=== PATIENT | female | born 1945 | race Caucasian/White ===

== ENCOUNTER → 2017-09-09 | Outpatient (CLI) | payer OTHER | LOC: M WHC 14:13 | DX: Z12.31 Encounter for screening mammogram for malignant neoplasm of breast (principal) | CPT/HCPCS: 77067 ==

== ENCOUNTER 2017-09-22 11:09 | Day surgery (SDC) | payer OTHER ==
[~2017-09-22 11:09] MED LIST: LIDOCAINE 2% MDV 20 ML VIAL As Ordered; PROPOFOL 200 MG/20 ML VIAL As Ordered
[2017-09-22] MEDS: NS 1,000 ML IV (11:15)
== END 2017-09-22 13:50 | disposition home or self-care (01) ==
LOC: M OPP 11:09
DX: Z12.11 Encounter for screening for malignant neoplasm of colon (principal); Z86.010 Personal history of colon polyps; K57.30 Diverticulosis of large intestine without perforation or abscess without bleeding; I10 Essential (primary) hypertension; E78.5 Hyperlipidemia, unspecified; E11.9 Type 2 diabetes mellitus without complications; K21.9 Gastro-esophageal reflux disease without esophagitis; R12 Heartburn; M54.9 Dorsalgia, unspecified; F41.9 Anxiety disorder, unspecified; F32.9 Major depressive disorder, single episode, unspecified; J45.909 Unspecified asthma, uncomplicated; Z88.8 Allergy status to other drugs, medicaments and biological substances; Z91.048 Other nonmedicinal substance allergy status; Z88.1 Allergy status to other antibiotic agents; Z88.0 Allergy status to penicillin; Z79.899 Other long term (current) drug therapy; Z79.84 Long term (current) use of oral hypoglycemic drugs
CPT/HCPCS: G0105

== ENCOUNTER 2018-04-13 17:14 | Emergency (ER) | payer OTHER ==
[2018-04-13] MEDS ORDERED: PERCOCET 5MG/325MG TAB As Ordered (18:07)
[2018-04-13] MEDS: PERCOCET 5MG/325MG TAB PO (18:09)
== END 2018-04-13 19:32 | disposition home or self-care (01) ==
LOC: M ED 17:14
DX: S42.291A Other displaced fracture of upper end of right humerus, initial encounter for closed fracture (principal); S40.211A Abrasion of right shoulder, initial encounter; W01.0XXA Fall on same level from slipping, tripping and stumbling without subsequent striking against object, initial encounter; Y92.098 Other place in other non-institutional residence as the place of occurrence of the external cause; I10 Essential (primary) hypertension; Z88.8 Allergy status to other drugs, medicaments and biological substances; Z88.1 Allergy status to other antibiotic agents; Z88.0 Allergy status to penicillin; Z79.899 Other long term (current) drug therapy; Z79.84 Long term (current) use of oral hypoglycemic drugs
CPT/HCPCS: 73030

== ENCOUNTER → 2018-11-15 | Outpatient (CLI) | payer MEDICARE ==
[~2018-11-15] MED LIST changes: +ALBU0.084 INH; +ALOE VERA; +ASPI81TA3 OR; +AVALIDE OR; +CALCIUM CITRATE OR; +CARI350T; +CELE1CAP4; +FLON0.05 OR; +FLOV110A INH; +FLUT1SPR2; +FOSAMAX OR; +GLUC500T3; +GLUC850T OR; +IBUP600T OR; -LIDOCAINE 2% MDV 20 ML VIAL As Ordered; +LOSA100T PO; +LYSINE; +MECL-68 PO; +METR0.752 EX; +MONT10TA2 PO; +MULTIVIT OR; +NEXI1CAP3; +OXYC5CAP4; +OXYC5CAP4 OR; +PERC5TAB12 PO; +PERC5TAB8; +PIROPOW2; +PROAAER10 IN; -PROPOFOL 200 MG/20 ML VIAL As Ordered; +SIMV20TA2 OR; +SING10TA31 OR; +TOPI100T OR; +VENL75CA47 PO; +ZOFR4TAB14 PO; +ZOLO100T OR
--- NOTE | 2018-11-15 14:49 | REPMRS ---
Patient History The patient states she has not had a clinical breast exam in over a year. Patient is postmenopausal. No known family history of cancer. No Hormone Replacement Therapy 3D TOMOSYNTHESIS WAS PERFORMED. Digital Woman Screen Mammo: November 15, 2018 - Exam #: [id number] Bilateral CC and MLO view(s) were taken. Technologist: Lizette Ontiveros, Technologist Prior study comparison: September 09, 2017, digital woman screen mammo performed at [facility]. FINDINGS: There are scattered fibroglandular densities. There has been no change in the appearance of the mammogram from the prior studies. There is a mild amount of residual fibroglandular tissue which is fairly symmetric. There is no interval development of dominant mass, architectural distortion, or clustered microcalcification suggestive of malignancy. Assessment: BI-RADS/ACR category 1 mammogram. Negative Mammogram. Recommendation Routine screening mammogram in 1 year (for women over age 40). This mammogram was interpreted with the aid of an FDA-approved computer-aided dectection system. Electronically Signed By: Vito Leal MD 11/15/18 [id number]
== END ==
LOC: M WHC 13:04
PROVIDERS: ATTEND Internal Medicine
DX: Z12.31 Encounter for screening mammogram for malignant neoplasm of breast (principal); M85.80 Other specified disorders of bone density and structure, unspecified site; Z78.0 Asymptomatic menopausal state

== ENCOUNTER → 2019-02-07 | Outpatient (CLI) | payer MEDICARE ==
--- NOTE | 2019-02-07 16:15 | REP ---
Right hand four views: Comparison is a 2013. The fracture at the base of the ring finger proximal phalange on the previous study has healed in satisfactory position alignment. There is moderate PIP and DIP joint space narrowing compatible with osteoarthritic change. The MCP articulations and carpal articulations are unremarkable. There are no calcifications. No foreign bodies. 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 Healed fracture at the base of the ring finger proximal phalange. Electronically Signed by Vito Jordan MD 02/07/2019 04:07 P
== END ==
LOC: M WUC 15:49
PROVIDERS: ATTEND Physician Assistant
DX: M19.041 Primary osteoarthritis, right hand (principal); M79.644 Pain in right finger(s); Z87.81 Personal history of (healed) traumatic fracture

== ENCOUNTER 2021-01-03 16:57 | Inpatient (IN) | payer MEDICARE ==
[~2021-01-03] VITALS: Ht 165.1 cm; Wt 60.7 kg
[~2021-01-03 16:57] MED LIST changes: -MECL-68 PO; +MECL1TAB31 PO; +MONT10TA10 PO; -MONT10TA2 PO
[2021-01-03] MEDS ORDERED: ONDANSETRON 4MG/2ML VIAL IV ONE (18:05)
[2021-01-03 18:17] LABS: BASO % 0.4 % (0.0-1.0); EOS # 0.1 10^3/uL (0.0-0.5); EOS % 0.5 % (0.0-3.0); HEMATOCRIT 43.7 % (36.0-47.0); HEMOGLOBIN 13.9 g/dl (12.0-15.5); LYMPH # 2.4 10^3/uL (1.5-5.0); LYMPH % 26.2 % (24.0-44.0); MEAN CORPUSCULAR HEMOGLOBIN 27.9 pg (27.0-33.0); MEAN CORPUSCULAR HGB CONC 31.8 g/dl (32.0-36.5); MEAN CORPUSCULAR VOLUME 87.8 fl (80.0-96.0); MONO # 0.5 10^3/uL (0.0-0.8); MONO % 5.6 % (2.0-8.0); NEUTROPHILS # 6.2 10^3/uL (1.5-8.5); NEUTROPHILS % 66.9 % (36.0-66.0); PLATELET COUNT, AUTOMATED 223 10^3/uL (150-450); RED BLOOD COUNT 4.98 10^6/uL (4.00-5.40); WHITE BLOOD COUNT 9.3 10^3/uL (4.0-10.0)
[2021-01-03] MEDS: NS 1,000 ML IV SCH (18:17)
[2021-01-03 18:43] LABS: ALBUMIN 3.8 GM/DL (3.2-5.2); ALT/SGPT 17 U/L (12-78); BILIRUBIN,DIRECT 0.1 MG/DL (0.0-0.2); BILIRUBIN,TOTAL 0.6 MG/DL (0.2-1.0); BLOOD UREA NITROGEN 12 MG/DL (7-18); CARBON DIOXIDE LEVEL 28 MEQ/L (21-32); CHLORIDE LEVEL 105 MEQ/L (98-107); CREATININE FOR GFR 0.92 MG/DL (0.55-1.30); GLOMERULAR FILTRATION RATE > 60.0 (>39); GLUCOSE, FASTING 139 MG/DL (70-100); LIPASE 107 U/L (73-393); POTASSIUM SERUM 5.1 MEQ/L (3.5-5.1); SODIUM LEVEL 138 MEQ/L (136-145); TOTAL PROTEIN 7.9 GM/DL (6.4-8.2)
[2021-01-03] MEDS ORDERED: ISOVUE-370 76% 100ML VIAL As Ordered ONE (18:52)
--- NOTE | 2021-01-03 20:17 | REPVR ---
PROCEDURE INFORMATION: Exam: CT Abdomen And Pelvis With Contrast Exam date and time: 01/03/2021 7:10 PM Age: 75 years old Clinical indication: Vomiting TECHNIQUE: Imaging protocol: Computed tomography of the abdomen and pelvis with contrast. Radiation optimization: All CT scans at this facility use at least one of these dose optimization techniques: automated exposure control; mA and/or kV adjustment per patient size (includes targeted exams where dose is matched to clinical indication); or iterative reconstruction. Contrast material: ISOVUE 370; Contrast volume: 100 ml; Contrast route: INTRAVENOUS (IV); COMPARISON: No relevant prior studies available. FINDINGS: Lungs: 8 mm smooth bordered noncalcified nodule right lung base. Liver: There is a diffuse decrease in hepatic parenchymal density, consistent with steatosis. Multiple small hypoattenuating foci in the liver measuring up to 1.2 cm in the posterior aspect of the right lobe of the liver. Larger lesions represent cysts. Smaller lesions are indeterminate may represent small cysts or other benign foci such as biliary hamartomas. Gallbladder and bile ducts: See "Liver" finding. Pancreas: Normal. No ductal dilation. Spleen: Normal. No splenomegaly. Adrenal glands: There is bilateral adrenal hyperplasia. Kidneys and ureters: Bilateral simple cysts measuring up to 4.3 cm in the right kidney and a 1 cm in the left kidney. No follow-up suggested. Kidneys otherwise unremarkable. Stomach and bowel: Mild diverticulosis is present in the distal colon. No diverticulitis. Appendix: No evidence of appendicitis. Intraperitoneal space: Unremarkable. No free air. No significant fluid collection. Vasculature: The aortoiliac vessels demonstrate moderate atherosclerotic calcification. Lymph nodes: Unremarkable. No enlarged lymph nodes. Urinary bladder: Unremarkable as visualized. Reproductive: There has been a hysterectomy. Bones/joints: The spine demonstrates mild degenerative changes. Moderate central spinal stenosis at L2-L3, severe central spinal stenosis L3-L4 and L4-L5. Bulging annulus L5-S1. Shallow dextroscoliosis. Soft tissues: Unremarkable. Other findings: Osteoporosis. IMPRESSION: 1. 8 mm smooth bordered noncalcified nodule right lung base. For patients at low risk (minimal or absent history of smoking and of other known risk factors), recommend CT Chest at 6-12 months, then consider CT Chest at 18-24 months. For patients at high risk (history of smoking or of other known risk factors), recommend CT Chest at 6-12 months, then CT Chest at 18-24 months. (Reference: Vaishnavi) References: Vaishnavi Clay, et al. Guidelines for Management of Incidental Pulmonary Nodules Detected on CT Images: From the Fleischner Society 2017. Radiology. 2017;284(1):228-243. 2. There is a diffuse decrease in hepatic parenchymal density, consistent with steatosis. 3. Multiple small hypoattenuating foci in the liver measuring up to 1.2 cm in the posterior aspect of the right lobe of the liver. Larger lesions represent cysts. Smaller lesions are indeterminate may represent small cysts or other benign foci such as biliary hamartomas. 4. There is bilateral adrenal hyperplasia. 5. There has been a hysterectomy. 6. Mild diverticulosis is present in the distal colon. No diverticulitis. COMMENTS: Consistent with the [employer]'s Incidental Findings Committee white paper (J Am Madeline Radiol 2018): Any incidental renal lesion less than 1 cm or classified as too small to characterize, or any incidental cystic renal lesion characterized as simple-appearing, is likely benign. No follow-up imaging is recommended for these lesions per consensus recommendations based on imaging criteria. Electronically signed by: Karl Falcon On 01/03/2021 20:16:42 PM
[2021-01-03] MEDS ORDERED: METF-954 PO (22:56)
[2021-01-03] MEDS ORDERED: MULT-40 PO (22:56)
[2021-01-03] MEDS ORDERED: SIMV40TA20 PO (22:56)
[2021-01-03] MEDS ORDERED: OCUVCAP2 PO (22:57)
[2021-01-03] MEDS ORDERED: LOSA100T50 PO (22:57)
[2021-01-03] MEDS ORDERED: QUET25TA3 PO (22:57)
[2021-01-03] MEDS ORDERED: LEVOTAB10 PO (22:57)
[2021-01-03] MEDS ORDERED: MED REC COMMENT (22:58)
--- NOTE | 2021-01-03 23:31 | IPNPDOC ---
Text Note Date of Service The patient was seen on 01/03/21. NOTE TIME OF SERVICE 1150PM Ms. Vu is a 75 yr old a hx of DM, depression and asthma who was brought to the ER for evaluation of vomiting. At the time of my exam she denied having bloody emesis, abdominal pain, fever or chills. On physical exam she was alert and oriented to person but the exam was otherwise unremarkable Admitting diagnoses: #vomiting cause TBD # Dementia Plan: Zofran/ hold off IVF bc she doesnt appear to be dehydrated / PFS consult Rest per SANDEEP Dietz H&P VS,Fishbone, I+O VS, Fishbone, I+O Laboratory Tests 01/03/21 17:20 Vital Signs Date Time Temp Pulse Resp B/P (MAP) Pulse Ox O2 Delivery O2 Flow Rate FiO2 01/03/21 19:25 161/70 (100) 01/03/21 19:12 77 97 01/03/21 17:09 97.3 18 Room Air ASHWIN WITT MD Jan 03, 2021 23:31
[2021-01-03] MEDS ORDERED: MAALOX 30 ML SUSP *UDC PO PRN (23:35)
[2021-01-03] MEDS ORDERED: MOM 30ML SUSPENSION UDC PO PRN (23:35)
[2021-01-04 00:21] LABS: RSV AMPLIFICATION NEGATIVE (NEGATIVE)
[2021-01-04] MEDS ORDERED: GLUCAGON INJ 1MG VIAL SC PRN (00:40)
[2021-01-04] MEDS ORDERED: GLUCOSE 4GM CHEW TABLET PO PRN (00:40)
[2021-01-04] MEDS ORDERED: DEXTROSE 50% 50 ML SYRINGE IV PRN (00:40)
--- NOTE | 2021-01-04 00:40 | HPEPDOC ---
[facility] Medical History & Physical Date of Admission Jan 03, 2021 Date of Service: Jan 03, 2021 Attending Physician: ASHWIN WITT MD History and Physical CHIEF COMPLAINT: [75 y/o female with cc of n/v] HISTORY OF PRESENT ILLNESS: [This is a 75 y/o female with a pmh of advanced dementia, asthma, hld, gerd and niddm2 who presented to the ED with her daughter who apparently stated that patient has been fatigued, and experiencing nausea and vomiting for approx a week. As of my exam of patient, daughter has left and patient is unable to provide history d/t her mentation. History is gathered from the chart and ED providers. Workup in the ED was unremarkable. ] PAST MEDICAL HISTORY: 1. [See HPI PAST SURGICAL HISTORY: 1. [Appendectomy]. 2. [Hysterectomy]. SOCIAL HISTORY: Unable to obtain d/t mentation. FAMILY HISTORY: Unable to obtain d/t mentation. ALLERGIES: Please see below. REVIEW OF SYSTEMS: Unable to obtain d/t mentation. HOME MEDICATIONS: Please see below. PHYSICAL EXAMINATION: VITAL SIGNS: Please see below. GENERAL APPEARANCE: [This is a confused 75 y/o female. She is alert but not oriented. She does not appear to be in any distress or pain.]. HEENT: [No mass or lesion. EOMI. No scleral icterus. Nares patent. Oral mucosa moist without erythema. Poor dentition.]. CARDIOVASCULAR: [Regular rate, rhythm. No murmurs, rubs or gallops]. LUNGS: [Good air flow b/l. No wheezing, rales, rhonchi.]. ABDOMEN: [Soft, nontender.]. MUSCULOSKELETAL: [No joint deformity.]. EXTREMITIES: [No peripheral edema. No overlying skin changes. Pulses intact.]. NEUROLOGICAL: [Speech clear however at times is gibberish. Patient not oriented. No focal deficits.]. PSYCHIATRIC: [Patient is confused.]. LABORATORY DATA: See below. IMAGING: [CT Abd/pelvis: FINDINGS: Lungs: 8 mm smooth bordered noncalcified nodule right lung base. Liver: There is a diffuse decrease in hepatic parenchymal density, consistent with steatosis. Multiple small hypoattenuating foci in the liver measuring up to 1.2 cm in the posterior aspect of the right lobe of the liver. Larger lesions represent cysts. Smaller lesions are indeterminate may represent small cysts or other benign foci such as biliary hamartomas. Gallbladder and bile ducts: See "Liver" finding. Pancreas: Normal. No ductal dilation. Spleen: Normal. No splenomegaly. Adrenal glands: There is bilateral adrenal hyperplasia. Kidneys and ureters: Bilateral simple cysts measuring up to 4.3 cm in the right kidney and a 1 cm in the left kidney. No follow-up suggested. Kidneys otherwise unremarkable. Stomach and bowel: Mild diverticulosis is present in the distal colon. No diverticulitis. Appendix: No evidence of appendicitis. Intraperitoneal space: Unremarkable. No free air. No significant fluid collection. Vasculature: The aortoiliac vessels demonstrate moderate atherosclerotic calcification. Lymph nodes: Unremarkable. No enlarged lymph nodes. Urinary bladder: Unremarkable as visualized. Reproductive: There has been a hysterectomy. Bones/joints: The spine demonstrates mild degenerative changes. Moderate central spinal stenosis at L2-L3, severe central spinal stenosis L3-L4 and L4-L5. Bulging annulus L5-S1. Shallow dextroscoliosis. Soft tissues: Unremarkable. Other findings: Osteoporosis. IMPRESSION: 1. 8 mm smooth bordered noncalcified nodule right lung base. For patients at low risk (minimal or absent history of smoking and of other known risk factors), recommend CT Chest at 6-12 months, then consider CT Chest at 18-24 months. For patients at high risk (history of smoking or of other known risk factors), recommend CT Chest at 6-12 months, then CT Chest at 18-24 months. (Reference: Vaishnavi) References: Adelahobj H, et al. Guidelines for Management of Incidental Pulmonary Nodules Detected on CT Images: From the Fleischner Society 2017. Radiology. 2017;284(1):228-243. 2. There is a diffuse decrease in hepatic parenchymal density, consistent with steatosis. 3. Multiple small hypoattenuating foci in the liver measuring up to 1.2 cm in the posterior aspect of the right lobe of the liver. Larger lesions represent cysts. Smaller lesions are indeterminate may represent small cysts or other benign foci such as biliary hamartomas. 4. There is bilateral adrenal hyperplasia. 5. There has been a hysterectomy. 6. Mild diverticulosis is present in the distal colon. No diverticulitis. ] MICROBIOLOGY: Please see below. ASSESSMENT: [This is a 75 y/o female with a pmh of advanced dementia, asthma, hld, gerd and niddm2 who presented to the ED with her daughter who apparently stated that patient has been fatigued, and experiencing nausea and vomiting for approx a week. As of my exam of patient, daughter has left and patient is unable to provide history d/t her mentation. History is gathered from the chart and ED providers. Workup in the ED was unremarkable.]. . PLAN: 1. [Failure to thrive 2/2 dementia - Pt apparently has not been tolerating oral intake - Daughter has apparently expressed that she feels she can no longer care for her mother to ed providers by phone - Will give IVF on the floor for now - continue seroquel - web content & social media manager consulted - will monitor behaviors - may need sitter - admit to med surg 2. DM2 - sliding scale, hypoglycemic protocol 3. HTN - continue losartan 4. HLD - continue simvastatin 5. Depression - continue effexor DVT Prophylaxis - Lovenox]. Vital Signs Vital Signs Date Time Temp Pulse Resp B/P (MAP) Pulse Ox O2 Delivery O2 Flow Rate FiO2 01/03/21 19:25 161/70 (100) 01/03/21 19:12 77 97 01/03/21 17:09 97.3 18 Room Air Laboratory Data Labs 24H Laboratory Tests 2 01/03/21 17:20: Immature Granulocyte % (Auto) 0.4, Neutrophils (%) (Auto) 66.9H, Lymphocytes (%) (Auto) 26.2, Monocytes (%) (Auto) 5.6, Eosinophils (%) (Auto) 0.5, Basophils (%) (Auto) 0.4, Neutrophils # (Auto) 6.2, Lymphocytes # (Auto) 2.4, Monocytes # (Auto) 0.5, Eosinophils # (Auto) 0.1, Basophils # (Auto) 0.0, Nucleated Red Blood Cells % (auto) 0.0, Anion Gap 5L, Glomerular Filtration Rate > 60.0, Calcium Level 9.0, Total Bilirubin 0.6, Direct Bilirubin 0.1, Aspartate Amino Transf (AST/SGOT) 27, Alanine Aminotransferase (ALT/SGPT) 17, Alkaline Phosphatase 113, Total Protein 7.9, Albumin 3.8, Albumin/Globulin Ratio 0.9L, Lipase 107 01/03/21 23:23: Coronavirus (COVID-19)(PCR) NEGATIVE, Influenza Type A (RT-PCR) NEGATIVE, Influenza Type B (RT-PCR) NEGATIVE, Respiratory Syncytial Virus (PCR) NEGATIVE CBC/BMP Laboratory Tests 01/03/21 17:20 Home Medications Scheduled C,E,Zinc,Copper 24/Om3/Lut/Benji (Ocuvite Adult 50 Plus Softgel) 1 Each Capsule, 1 CAP PO DAILY Levocetirizine Dihydrochloride (Levocetirizine Dihydrochloride) 5 Mg Tablet, 5 MG PO QHS Losartan Potassium (Losartan Potassium) 100 Mg Tablet, 100 MG PO QPM Metformin HCl (Metformin HCl) 850 Mg Tablet, 850 MG PO BID BREAKFAST AND DINNER Multivitamin (Multivitamins) 1 Each Tablet, 1 TAB PO DAILY LUNCH Quetiapine Fumarate (Quetiapine Fumarate) 25 Mg Tablet, 25 MG PO QHS Simvastatin (Simvastatin) 40 Mg Tablet, 40 MG PO DAILY LUNCH Venlafaxine HCl (Venlafaxine HCl ER) 75 Mg Capcr, 75 MG PO DAILY Miscellaneous Medications [Med Rec Comment] SPOKE WITH PT DAUGHTER (JAKE) STATES PT. IS NON-COMPLIENT WITH MEDICATIONS Allergies Coded Allergies: Penicillins (Verified Allergy, Unknown, RESPIRATORY DISTRESS, 01/03/21) butorphanol (Verified Allergy, Unknown, HYPERTENSION, 01/03/21) eszopiclone (Verified Allergy, Unknown, AGITATION/DISORIENTED, 01/03/21) flurazepam (Verified Allergy, Unknown, DISORIENTED AND AGITATED, 01/03/21) formaldehyde (Verified Allergy, Unknown, SEVERE SWELLING, 01/03/21) gentamicin (Verified Allergy, Unknown, SEVERE SWELLING, 01/03/21) prochlorperazine (Verified Allergy, Unknown, HYPERTONIC, 01/03/21) temazepam (Verified Allergy, Unknown, AGITATION/DISORIENTED, 01/03/21) triazolam (Verified Allergy, Unknown, AGITATION/DISORIENTATION, 01/03/21) zaleplon (Verified Allergy, Unknown, AGITATION/DISORIENTED, 01/03/21) zolpidem (Verified Allergy, Unknown, DISORIENTED/AGITATION, 01/03/21) A-FIB/CHADSVASC A-FIB History Current/History of A-Fib/PAF?: No Attending Note Attending Note TIME OF SERVICE 1150PM on January 03 Ms. Vu is a 75 yr old a hx of DM, depression and asthma who was brought to the ER for evaluation of vomiting. At the time of my exam she denied having bloody emesis, abdominal pain, fever or chills. On physical exam she was alert and oriented to person but the exam was otherwise unremarkable Admitting diagnoses: #vomiting cause TBD # Dementia Plan: Zofran/ hold off IVF bc she doesnt appear to be dehydrated / PFS consult Rest per SANDEEP Dietz H&P RICA BARRIOS Jan 04, 2021 00:40 ASHWIN WITT MD Jan 04, 2021 02:04
[2021-01-04 01:53] VITALS: BP 184/78
[2021-01-04] MEDS ORDERED: ONDANSETRON 4 MG ORAL DISINTEGRATING TAB PO PRN (02:00)
[2021-01-04] MEDS: NS 1,000 ML IV SCH (02:01)
[2021-01-04] MEDS ORDERED: PILL CUTTER 1 EACH XX PRN (02:10)
[2021-01-04] MEDS: LOSARTAN 50MG TABLET PO SCH ×2 (02:13→21:47)
[2021-01-04] MEDS: QUEtiapine FUMARATE 25 MG TAB PO SCH ×2 (02:13→21:47)
[2021-01-04] MEDS: HumaLOG INSULIN (NovoLOG) PER UNIT SC SCH ×5 (02:14→21:00)
[2021-01-04 06:00] VITALS: BP 157/70
[2021-01-04 06:08] LABS: BASO # 0.1 10^3/uL (0.0-0.2); BASO % 0.6 % (0.0-1.0); EOS # 0.1 10^3/uL (0.0-0.5); EOS % 1.2 % (0.0-3.0); HEMATOCRIT 39.3 % (36.0-47.0); HEMOGLOBIN 12.4 g/dl (12.0-15.5); LYMPH # 3.1 10^3/uL (1.5-5.0); LYMPH % 31.3 % (24.0-44.0); MEAN CORPUSCULAR HEMOGLOBIN 27.7 pg (27.0-33.0); MEAN CORPUSCULAR HGB CONC 31.6 g/dl (32.0-36.5); MEAN CORPUSCULAR VOLUME 87.9 fl (80.0-96.0); MONO # 0.7 10^3/uL (0.0-0.8); MONO % 6.9 % (2.0-8.0); NEUTROPHILS # 5.8 10^3/uL (1.5-8.5); NEUTROPHILS % 59.8 % (36.0-66.0); PLATELET COUNT, AUTOMATED 197 10^3/uL (150-450); RED BLOOD COUNT 4.47 10^6/uL (4.00-5.40); WHITE BLOOD COUNT 9.8 10^3/uL (4.0-10.0)
[2021-01-04 06:32] LABS: BLOOD UREA NITROGEN 10 MG/DL (7-18); CALCIUM LEVEL 8.3 MG/DL (8.8-10.2); CARBON DIOXIDE LEVEL 28 MEQ/L (21-32); CHLORIDE LEVEL 107 MEQ/L (98-107); CREATININE FOR GFR 0.78 MG/DL (0.55-1.30); GLOMERULAR FILTRATION RATE > 60.0 (>39); GLUCOSE, FASTING 99 MG/DL (70-100); POTASSIUM SERUM 3.7 MEQ/L (3.5-5.1); SODIUM LEVEL 140 MEQ/L (136-145)
[2021-01-04] MEDS: ENOXAPARIN 40MG/0.4ML SYRINGE (J1650 PER 10MG) SC SCH (08:01)
[2021-01-04] MEDS: DOCUSATE SODIUM 100MG CAPSULE PO SCH ×2 (08:01→21:46)
[2021-01-04] MEDS: VENLAFAXINE **XR** 75MG CAPSULE PO SCH (08:01)
[2021-01-04] MEDS: SIMVASTATIN 40 MG TAB PO SCH (12:29)
[2021-01-04 14:00] VITALS: BP 140/73
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
[2021-01-04 22:00] VITALS: BP 136/72
[2021-01-05 06:00] VITALS: BP 144/76
[2021-01-05] MEDS: HumaLOG INSULIN (NovoLOG) PER UNIT SC SCH ×4 (07:30→21:00)
[2021-01-05] MEDS: VENLAFAXINE **XR** 75MG CAPSULE PO SCH (08:55)
[2021-01-05] MEDS: DOCUSATE SODIUM 100MG CAPSULE PO SCH ×2 (08:55→21:45)
[2021-01-05] MEDS: ENOXAPARIN 40MG/0.4ML SYRINGE (J1650 PER 10MG) SC SCH (08:55)
[2021-01-05 11:01] LABS: BASO # 0.1 10^3/uL (0.0-0.2); BASO % 0.6 % (0.0-1.0); EOS # 0.2 10^3/uL (0.0-0.5); EOS % 2.6 % (0.0-3.0); HEMATOCRIT 42.2 % (36.0-47.0); HEMOGLOBIN 13.3 g/dl (12.0-15.5); LYMPH # 2.8 10^3/uL (1.5-5.0); LYMPH % 33.5 % (24.0-44.0); MEAN CORPUSCULAR HEMOGLOBIN 27.9 pg (27.0-33.0); MEAN CORPUSCULAR HGB CONC 31.5 g/dl (32.0-36.5); MEAN CORPUSCULAR VOLUME 88.5 fl (80.0-96.0); MONO # 0.5 10^3/uL (0.0-0.8); MONO % 6.4 % (2.0-8.0); NEUTROPHILS # 4.8 10^3/uL (1.5-8.5); NEUTROPHILS % 56.8 % (36.0-66.0); PLATELET COUNT, AUTOMATED 210 10^3/uL (150-450); RED BLOOD COUNT 4.77 10^6/uL (4.00-5.40); WHITE BLOOD COUNT 8.4 10^3/uL (4.0-10.0)
[2021-01-05 11:44] LABS: BLOOD UREA NITROGEN 13 MG/DL (7-18); CARBON DIOXIDE LEVEL 28 MEQ/L (21-32); CHLORIDE LEVEL 106 MEQ/L (98-107); CREATININE FOR GFR 0.89 MG/DL (0.55-1.30); GLOMERULAR FILTRATION RATE > 60.0 (>39); GLUCOSE, FASTING 115 MG/DL (70-100); POTASSIUM SERUM 3.8 MEQ/L (3.5-5.1); SODIUM LEVEL 141 MEQ/L (136-145)
[2021-01-05 11:45] LABS: CALCIUM LEVEL 8.6 MG/DL (8.8-10.2); CORTISOL BASELINE 8.3 UG/DL (4.3-22.4)
[2021-01-05] MEDS: SIMVASTATIN 40 MG TAB PO SCH (12:29)
[2021-01-05] MEDS: ACETAMINOPHEN TAB 650MG DOSE (2X325MG) PO PRN (12:29)
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
--- NOTE | 2021-01-05 16:40 | ECGEPIP ---
[facility] - ED Test Date: 2021-01-03 Pat Name: OZIEL WOO Department: Room: - Gender: Female Performance Tester: NANDA : 1945 Requested By: Apple Richey Order Number: [id number] Reading MD: Apple Richey Measurements Intervals [place] Rate: 85 P: 68 WV: 154 QRS: 49 QRSD: 86 T: 65 QT: 372 QTc: 442 Interpretive Statements Sinus rhythm with premature atrial complexes NSTTW abnormalities similar 09/29/15 Electronically Signed on 01-05-2021 16:40:27 EDT by Apple Richey
[2021-01-05] MEDS: QUEtiapine FUMARATE 25 MG TAB PO SCH (21:45)
[2021-01-05] MEDS: LOSARTAN 50MG TABLET PO SCH (21:46)
[2021-01-06 06:00] VITALS: BP 140/80
[2021-01-06] MEDS: HumaLOG INSULIN (NovoLOG) PER UNIT SC SCH ×4 (07:30→21:00)
[2021-01-06] MEDS: ENOXAPARIN 40MG/0.4ML SYRINGE (J1650 PER 10MG) SC SCH (08:14)
[2021-01-06] MEDS: VENLAFAXINE **XR** 75MG CAPSULE PO SCH (08:14)
[2021-01-06] MEDS: DOCUSATE SODIUM 100MG CAPSULE PO SCH ×2 (08:14→20:05)
[2021-01-06] MEDS: SIMVASTATIN 40 MG TAB PO SCH (12:54)
[2021-01-06] MEDS: QUEtiapine FUMARATE 25 MG TAB PO SCH (20:05)
[2021-01-06] MEDS: LOSARTAN 50MG TABLET PO SCH (20:07)
[2021-01-07 06:00] VITALS: BP 154/79
[2021-01-07] MEDS: HumaLOG INSULIN (NovoLOG) PER UNIT SC SCH ×4 (07:30→21:12)
[2021-01-07] MEDS: ENOXAPARIN 40MG/0.4ML SYRINGE (J1650 PER 10MG) SC SCH (09:23)
[2021-01-07] MEDS: VENLAFAXINE **XR** 75MG CAPSULE PO SCH (09:23)
[2021-01-07] MEDS: DOCUSATE SODIUM 100MG CAPSULE PO SCH ×2 (09:23→19:53)
[2021-01-07] MEDS: SIMVASTATIN 40 MG TAB PO SCH (12:19)
[2021-01-07 14:00] VITALS: BP 127/69
[2021-01-07] MEDS: QUEtiapine FUMARATE 25 MG TAB PO SCH (19:53)
[2021-01-07] MEDS: LOSARTAN 50MG TABLET PO SCH (19:56)
[2021-01-08 06:00] VITALS: BP 132/75
[2021-01-08] MEDS: HumaLOG INSULIN (NovoLOG) PER UNIT SC SCH ×4 (07:30→20:38)
[2021-01-08] MEDS: DOCUSATE SODIUM 100MG CAPSULE PO SCH ×2 (08:42→20:05)
[2021-01-08] MEDS: VENLAFAXINE **XR** 75MG CAPSULE PO SCH (08:42)
[2021-01-08] MEDS: ENOXAPARIN 40MG/0.4ML SYRINGE (J1650 PER 10MG) SC SCH (08:43)
[2021-01-08] MEDS: ACETAMINOPHEN TAB 650MG DOSE (2X325MG) PO PRN (08:46)
[2021-01-08] MEDS: SIMVASTATIN 40 MG TAB PO SCH (12:26)
[2021-01-08] MEDS: QUEtiapine FUMARATE 25 MG TAB PO SCH (20:05)
[2021-01-08] MEDS: LOSARTAN 50MG TABLET PO SCH (20:08)
[2021-01-09 06:00] VITALS: BP 141/79
[2021-01-09] MEDS: HumaLOG INSULIN (NovoLOG) PER UNIT SC SCH ×4 (07:30→20:24)
[2021-01-09] MEDS: DOCUSATE SODIUM 100MG CAPSULE PO SCH ×2 (09:22→22:20)
[2021-01-09] MEDS: ENOXAPARIN 40MG/0.4ML SYRINGE (J1650 PER 10MG) SC SCH (09:22)
[2021-01-09] MEDS: VENLAFAXINE **XR** 75MG CAPSULE PO SCH (09:23)
[2021-01-09] MEDS: SIMVASTATIN 40 MG TAB PO SCH (13:17)
[2021-01-09] MEDS: LOSARTAN 50MG TABLET PO SCH (22:20)
[2021-01-09] MEDS: QUEtiapine FUMARATE 25 MG TAB PO SCH (22:20)
[2021-01-10 06:00] VITALS: BP 140/72
[2021-01-10] MEDS: HumaLOG INSULIN (NovoLOG) PER UNIT SC SCH ×4 (07:30→20:28)
[2021-01-10 08:30] LABS: DOPAMINE PLASMA <30 pg/mL (0-48); EPINEPHRINE PLASMA <15 pg/mL (0-62); METANEPHRINE PLASMA 20.8 pg/mL (0.0-88.0); NOREPINEPHRINE PLASMA 439 pg/mL (0-874); NORMETANEPHRINE PLASMA 67.7 pg/mL (0.0-191.8)
[2021-01-10] MEDS: VENLAFAXINE **XR** 75MG CAPSULE PO SCH (08:58)
[2021-01-10] MEDS: DOCUSATE SODIUM 100MG CAPSULE PO SCH ×2 (08:58→20:27)
[2021-01-10] MEDS: ENOXAPARIN 40MG/0.4ML SYRINGE (J1650 PER 10MG) SC SCH (08:59)
[2021-01-10] MEDS: SIMVASTATIN 40 MG TAB PO SCH (12:27)
[2021-01-10] MEDS: OCUVITE 1 TAB PO SCH (14:27)
[2021-01-10] MEDS: QUEtiapine FUMARATE 25 MG TAB PO SCH (20:27)
[2021-01-10] MEDS: LOSARTAN 50MG TABLET PO SCH (20:27)
[2021-01-11 06:00] VITALS: BP 127/59
[2021-01-11] MEDS: HumaLOG INSULIN (NovoLOG) PER UNIT SC SCH ×4 (07:30→21:00)
[2021-01-11] MEDS: VENLAFAXINE **XR** 75MG CAPSULE PO SCH (09:13)
[2021-01-11] MEDS: DOCUSATE SODIUM 100MG CAPSULE PO SCH ×2 (09:13→20:30)
[2021-01-11] MEDS: OCUVITE 1 TAB PO SCH (09:13)
[2021-01-11] MEDS: ENOXAPARIN 40MG/0.4ML SYRINGE (J1650 PER 10MG) SC SCH (09:14)
[2021-01-11] MEDS: SIMVASTATIN 40 MG TAB PO SCH (12:41)
[2021-01-11] MEDS: LOSARTAN 50MG TABLET PO SCH (20:30)
[2021-01-11] MEDS: QUEtiapine FUMARATE 25 MG TAB PO SCH (20:30)
[2021-01-12 06:00] VITALS: BP 122/75
[2021-01-12] MEDS: ENOXAPARIN 40MG/0.4ML SYRINGE (J1650 PER 10MG) SC SCH (09:00)
[2021-01-12] MEDS: DOCUSATE SODIUM 100MG CAPSULE PO SCH ×2 (09:00→20:51)
[2021-01-12] MEDS: OCUVITE 1 TAB PO SCH (09:00)
[2021-01-12] MEDS: VENLAFAXINE **XR** 75MG CAPSULE PO SCH (09:00)
[2021-01-12] MEDS: HumaLOG INSULIN (NovoLOG) PER UNIT SC SCH ×4 (09:01→21:03)
[2021-01-12] MEDS: SIMVASTATIN 40 MG TAB PO SCH (12:57)
[2021-01-12] MEDS: LOSARTAN 50MG TABLET PO SCH (20:53)
[2021-01-12] MEDS: QUEtiapine FUMARATE 25 MG TAB PO SCH (20:53)
[2021-01-13 06:00] VITALS: BP 113/52
[2021-01-13] MEDS: HumaLOG INSULIN (NovoLOG) PER UNIT SC SCH ×4 (09:34→20:30)
[2021-01-13] MEDS: ENOXAPARIN 40MG/0.4ML SYRINGE (J1650 PER 10MG) SC SCH (09:34)
[2021-01-13] MEDS: VENLAFAXINE **XR** 75MG CAPSULE PO SCH (09:34)
[2021-01-13] MEDS: OCUVITE 1 TAB PO SCH (09:34)
[2021-01-13] MEDS: DOCUSATE SODIUM 100MG CAPSULE PO SCH ×2 (09:34→20:30)
[2021-01-13] MEDS: SIMVASTATIN 40 MG TAB PO SCH (13:46)
[2021-01-13] MEDS: QUEtiapine FUMARATE 25 MG TAB PO SCH (20:30)
[2021-01-13 20:31] VITALS: BP 127/66
[2021-01-13] MEDS: LOSARTAN 50MG TABLET PO SCH (20:31)
[2021-01-14 06:00] VITALS: BP 135/62
[2021-01-14] MEDS: HumaLOG INSULIN (NovoLOG) PER UNIT SC SCH ×2 (08:27→12:24)
[2021-01-14] MEDS: ENOXAPARIN 40MG/0.4ML SYRINGE (J1650 PER 10MG) SC SCH (08:28)
[2021-01-14] MEDS: OCUVITE 1 TAB PO SCH (08:29)
[2021-01-14] MEDS: VENLAFAXINE **XR** 75MG CAPSULE PO SCH (08:29)
[2021-01-14] MEDS: DOCUSATE SODIUM 100MG CAPSULE PO SCH (08:30)
[2021-01-14] MEDS ORDERED: LEVOTAB10 PO (11:26)
--- NOTE | 2021-01-14 11:51 | DS.PDOC ---
Discharge Summary General Date of Admission Jan 03, 2021 at 23:35 Date of Discharge 01/14/21 Discharge Summary PROCEDURES PERFORMED DURING STAY: [None]. DISCHARGE DIAGNOSES: Dementia Dm HTN HLD Depression. Right Lung nodule Bilateral adrenal hyperplasia hepatic cysts bilateral renal cysts. Lumber spinal stenosis. COMPLICATIONS/CHIEF COMPLAINT: Failure To Thrive. HOSPITAL COURSE: Patient is a 75-year-old female with a history of advanced dementia, asthma, hyperlipidemia, GERD, type 2 diabetes, was brought to the emergency room by her daughter with report of worsening fatigue as well as nausea and vomiting with reduced by mouth intake. Family endorsed that they're unable to care for the patient at home so she is for predatory animal exterminator placemetn. Advanced dementia Family unable to provide the amount of care she is needing at home. No behavioral issues at this time predatory animal exterminator placement. DM2 Metformin HTN continue losartan HLD continue simvastatin Depression continue effexor Bilateral Adrenal hyperplasia cortisol level, serum and plasma metanephrines and catecholamines all within normal levels. Right Lung nodule seen on CT abdomen below repeat surveillance imaging outpatient, CT chest in 6 mo. DISCHARGE MEDICATIONS: Please see below. ALLERGIES: Please see below. PHYSICAL EXAMINATION ON DISCHARGE: VITAL SIGNS: Please see below. General: NAD, comfortable HEENT: PERRLA, EOMI, sclerae clear Neck: supple, normal ROM, no JVD Respiratory: lungs CTAB, no wheeze, no rales, no crackles CVS: RRR, normal S1, S2, no murmurs Abdo: soft, no masses, no hepatosplenomegaly, BS+, no rebound tenderness Extremities: no edema, pulses 2+ MSK: no joint deformities, normal ROM Neuro: no focal neuro deficits, moving all 4 extremities, Strength 5/5 in all 4 extremities. No nystagmus. Psych: calm, cooperative LABORATORY DATA: Please see below. IMAGING: CT abdo pelvis (01/03/21): 1. 8 mm smooth bordered noncalcified nodule right lung base. For patients at low risk (minimal or absent history of smoking and of other known risk factors), recommend CT Chest at 6-12 months, then consider CT Chest at 18-24 months. For patients at high risk (history of smoking or of other known risk factors), recommend CT Chest at 6-12 months, then CT Chest at 18-24 months. 2. There is a diffuse decrease in hepatic parenchymal density, consistent with steatosis. 3. Multiple small hypoattenuating foci in the liver measuring up to 1.2 cm in the posterior aspect of the right lobe of the liver. Larger lesions represent cysts. Smaller lesions are indeterminate may represent small cysts or other benign foci such as biliary hamartomas. 4. There is bilateral adrenal hyperplasia. 5. There has been a hysterectomy. ACTIVITY: [As tolerated]. DIET: Regular DISCHARGE PLAN: [place] ITEMS TO FOLLOWUP ON ON OUTPATIENT: CT chest in 6 months to follow up on lung nodule DISCHARGE CONDITION: [Stable]. TIME SPENT ON DISCHARGE: 35 minutes. Vital Signs/I&Os Vital Signs Date Time Temp Pulse Resp B/P (MAP) Pulse Ox O2 Delivery O2 Flow Rate FiO2 01/14/21 06:00 96.3 81 16 135/62 (86) 98 Room Air I&O- Last 24 Hours up to 6 AM 01/14/21 07:00 Intake Total 2010 ml Output Total 1900 ml Balance 110 ml Laboratory Data Labs 24H Laboratory Tests 2 01/13/21 16:09: Bedside Glucose (Misc Panel) 226H 01/13/21 19:38: Bedside Glucose (Misc Panel) 202H 01/14/21 05:27: Bedside Glucose (Misc Panel) 126H 01/14/21 10:57: FSBS Laboratory Tests Test 01/13/21 16:09 01/13/21 19:38 01/14/21 05:27 Range/Units Bedside Glucose (Misc Panel) 226 202 126 83-110 MG/DL Discharge Medications Scheduled C,E,Zinc,Copper 24/Om3/Lut/Benji (Ocuvite Adult 50 Plus Softgel) 1 Each Capsule, 1 CAP PO DAILY, (Reported) Levocetirizine Dihydrochloride (Levocetirizine Dihydrochloride) 5 Mg Tablet, 5 MG PO QHSP for allergies Losartan Potassium (Losartan Potassium) 100 Mg Tablet, 100 MG PO QPM, (Reported) Metformin HCl (Metformin HCl) 850 Mg Tablet, 850 MG PO BID, (Reported) BREAKFAST AND DINNER Multivitamin (Multivitamins) 1 Each Tablet, 1 TAB PO DAILY, (Reported) LUNCH Quetiapine Fumarate (Quetiapine Fumarate) 25 Mg Tablet, 25 MG PO QHS, (Reported) Simvastatin (Simvastatin) 40 Mg Tablet, 40 MG PO DAILY, (Reported) LUNCH Venlafaxine HCl (Venlafaxine HCl ER) 75 Mg Capcr, 75 MG PO DAILY, (Reported) Miscellaneous Medications [Med Rec Comment] , (Reported) SPOKE WITH PT DAUGHTER (JAKE) STATES PT. IS NON-COMPLIENT WITH MEDICATIONS Allergies Coded Allergies: Penicillins (Verified Allergy, Unknown, RESPIRATORY DISTRESS, 01/03/21) butorphanol (Verified Allergy, Unknown, HYPERTENSION, 01/03/21) eszopiclone (Verified Allergy, Unknown, AGITATION/DISORIENTED, 01/03/21) flurazepam (Verified Allergy, Unknown, DISORIENTED AND AGITATED, 01/03/21) formaldehyde (Verified Allergy, Unknown, SEVERE SWELLING, 01/03/21) gentamicin (Verified Allergy, Unknown, SEVERE SWELLING, 01/03/21) prochlorperazine (Verified Allergy, Unknown, HYPERTONIC, 01/03/21) temazepam (Verified Allergy, Unknown, AGITATION/DISORIENTED, 01/03/21) triazolam (Verified Allergy, Unknown, AGITATION/DISORIENTATION, 01/03/21) zaleplon (Verified Allergy, Unknown, AGITATION/DISORIENTED, 01/03/21) zolpidem (Verified Allergy, Unknown, DISORIENTED/AGITATION, 01/03/21) LEELA ANGELO MD Jan 14, 2021 11:51
[2021-01-14] MEDS: SIMVASTATIN 40 MG TAB PO SCH (12:24)
== END 2021-01-14 14:12 | DRG 884 ==
LOC: M ED 16:57 → M ED INP 23:35 → ENRESERV 01-04 00:30 → M MSPAV 01-04 01:53
PROVIDERS: ADMIT Internal Medicine; ATTEND Internal Medicine Nephrology
DX: F03.91 Unspecified dementia, unspecified severity, with behavioral disturbance (principal); R53.83 Other fatigue; J45.909 Unspecified asthma, uncomplicated; E78.5 Hyperlipidemia, unspecified; K21.9 Gastro-esophageal reflux disease without esophagitis; E11.9 Type 2 diabetes mellitus without complications; Z90.49 Acquired absence of other specified parts of digestive tract; R62.7 Adult failure to thrive; E27.8 Other specified disorders of adrenal gland; R91.1 Solitary pulmonary nodule; I10 Essential (primary) hypertension; R11.2 Nausea with vomiting, unspecified; F32.9 Major depressive disorder, single episode, unspecified; Z20.822 Contact with and (suspected) exposure to COVID-19; Z79.84 Long term (current) use of oral hypoglycemic drugs; Z79.899 Other long term (current) drug therapy; Z88.0 Allergy status to penicillin; Z88.8 Allergy status to other drugs, medicaments and biological substances